=== PATIENT | female | born 2000 | race Caucasian/White ===

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

== ENCOUNTER 2020-07-07 20:17 | Inpatient (IN) ==
[2020-07-07 21:14] LABS: Urine Appearance Cloudy; Urine Bilirubin Negative (Negative); Urine Blood 1+ (Negative); Urine Color Straw; Urine Glucose Negative (Negative); Urine Ketones Negative (Negative); Urine Nitrite Negative (Negative); Urine Protein Negative (Negative); Urine Specific Gravity 1.004 (1.002-1.030); Urine Urobilinogen Negative (Negative)
[2020-07-07 21:22] LABS: ABS Eosinophils 0.2 10^3/ul (0-0.6); ABS Lymphocytes 3.5 10^3/ul (1.0-4.8); ABS Monocytes 0.5 10^3/ul (0-0.8); ABS Neutrophils 3.7 10^3/ul (1.5-7.7); Eosinophil % 1.9 %; Hematocrit 42 % (35-47); Hemoglobin 14.1 g/dL (12.0-16.0); Mean Corpuscular HGB Conc 34 g/dL (31-36); Mean Corpuscular Hemoglobin 28 pg (27-31); Mean Corpuscular Volume 84 fL (80-97); Mean Platelet Volume 7.9 fL (7.4-10.4); Platelet Count 289 10^3/uL (150-450); Red Blood Count 4.99 10^6 /uL (3.70-4.87); Red Cell Distribution Width 14 % (10-15); White Blood Count 7.9 10^3/uL (3.5-10.8)
[2020-07-07 21:24] LABS: Urine Bacteria 2+ (Absent); Urine Red Blood Cell Trace(0-2/hpf) (Absent); Urine Squamous Epithelial Cell Present (Absent); Urine White Blood Cell 1+(6-10/hpf) (Absent)
[2020-07-07 21:38] LABS: Urine Benzodiazepine Screen None Detected (None Detect); Urine Cannabinoids Screen None Detected (None Detect); Urine Opiates Screen None Detected (None Detect)
[2020-07-07 21:46] LABS: ALT 10 U/L (7-52); AST 14 U/L (13-39); Albumin 4.5 g/dL (3.2-5.2); Albumin/Globulin Ratio 1.4 (1-3); Alkaline Phosphatase 65 U/L (34-104); Anion Gap 7 mmol/L (2-11); Blood Urea Nitrogen 11 mg/dL (6-24); CO2 Carbon Dioxide 26 mmol/L (22-32); Calcium 9.8 mg/dL (8.6-10.3); Chloride 105 mmol/L (101-111); EGFR Non-African American 89.3 (>60); Globulin 3.2 g/dL (2-4); Glucose 92 mg/dL (70-100); Potassium 3.6 mmol/L (3.5-5.0); Sodium 138 mmol/L (135-145); Total Protein 7.7 g/dL (6.4-8.9)
[2020-07-07 21:47] LABS: Acetaminophen < 15 mcg/mL; Alcohol, S < 10 mg/dL (<10); Salicylate < 2.50 mg/dL (<30)
[2020-07-07 22:01] LABS: TSH Ultra Thyroid Stim Horm 1.34 mcIU/mL (0.34-5.60)
[2020-07-08] MEDS ORDERED: Al Hydrox/Mg Hydrox/Simet LIQ 30 ML UDC PO PRN (08:51)
[2020-07-11 08:10] VITALS: BP 114/65
== END 2020-07-11 12:10 | disposition home or self-care (01) | DRG 881 ==
LOC: ED 20:17 → BSU 07-08 08:51
PROVIDERS: ADMIT Psychiatry & Neurology Psychiatry; ATTEND Psychiatry & Neurology Psychiatry

== ENCOUNTER 2020-08-22 12:10 | Inpatient (IN) ==
[2020-08-22 13:09] LABS: ABS Eosinophils 0.1 10^3/ul (0-0.6); ABS Lymphocytes 1.6 10^3/ul (1.0-4.8); ABS Monocytes 0.4 10^3/ul (0-0.8); Eosinophil % 1.2 %; Hematocrit 39 % (35-47); Hemoglobin 13.4 g/dL (12.0-16.0); Lymphocyte % 26.3 %; Mean Corpuscular HGB Conc 34 g/dL (31-36); Mean Corpuscular Hemoglobin 29 pg (27-31); Mean Corpuscular Volume 84 fL (80-97); Mean Platelet Volume 7.4 fL (7.4-10.4); Platelet Count 315 10^3/uL (150-450); Red Blood Count 4.69 10^6 /uL (3.70-4.87); Red Cell Distribution Width 14 % (10-15); White Blood Count 6.1 10^3/uL (3.5-10.8)
[2020-08-22 13:36] LABS: Salicylate < 2.50 mg/dL (<30)
[2020-08-22 13:50] LABS: TSH Ultra Thyroid Stim Horm 0.73 mcIU/mL (0.34-5.60)
[2020-08-22 13:57] LABS: ALT 9 U/L (7-52); AST 13 U/L (13-39); Albumin/Globulin Ratio 1.3 (1-3); Alkaline Phosphatase 62 U/L (35-149); Anion Gap 6 mmol/L (2-11); Blood Urea Nitrogen 9 mg/dL (6-24); CO2 Carbon Dioxide 24 mmol/L (22-32); Calcium 9.1 mg/dL (8.6-10.3); Chloride 105 mmol/L (101-111); EGFR African American 114.5 (>60); EGFR Non-African American 94.6 (>60); Glucose 94 mg/dL (70-100); Potassium 3.8 mmol/L (3.5-5.0); Sodium 135 mmol/L (135-145)
[2020-08-22 14:04] LABS: HCG Pregnancy < 0.60 mIU/mL
[2020-08-22 14:09] LABS: Acetaminophen < 15 mcg/mL
[2020-08-22 19:52] LABS: Urine Benzodiazepine Screen None Detected (None Detect); Urine Cannabinoids Screen None Detected (None Detect); Urine Opiates Screen None Detected (None Detect)
[2020-08-22 21:17] LABS: Urine Appearance Clear; Urine Bilirubin Negative (Negative); Urine Blood Negative (Negative); Urine Color Straw; Urine Glucose Negative (Negative); Urine Ketones Negative (Negative); Urine Nitrite Negative (Negative); Urine Protein Negative (Negative); Urine Specific Gravity 1.005 (1.002-1.030); Urine Urobilinogen Negative (Negative)
[2020-08-23] MEDS ORDERED: Al Hydrox/Mg Hydrox/Simet LIQ 30 ML UDC PO PRN (02:27)
[2020-08-23] MEDS: Vitamin THERAPEUTIC TAB PO SCH (09:19)
[2020-08-24 08:06] LABS: HDL Cholesterol 47.3 mg/dL
[2020-08-24] MEDS: Vitamin THERAPEUTIC TAB PO SCH (08:44)
[2020-08-25] MEDS: Vitamin THERAPEUTIC TAB PO SCH (08:58)
[2020-08-26] MEDS: Vitamin THERAPEUTIC TAB PO SCH (09:55)
[2020-08-27] MEDS: Vitamin THERAPEUTIC TAB PO SCH (09:03)
[2020-08-28] MEDS: Vitamin THERAPEUTIC TAB PO SCH (09:08)
[2020-08-29] MEDS: Vitamin THERAPEUTIC TAB PO SCH (09:22)
[2020-08-30] MEDS: Vitamin THERAPEUTIC TAB PO SCH (09:17)
[2020-08-31] MEDS: Vitamin THERAPEUTIC TAB PO SCH (08:48)
[2020-09-01] MEDS: Vitamin THERAPEUTIC TAB PO SCH (08:32)
[2020-09-02] MEDS: Vitamin THERAPEUTIC TAB PO SCH (08:32)
[2020-09-02 11:44] VITALS: BP 118/77
== END 2020-09-02 13:10 | disposition home or self-care (01) | DRG 885 ==
LOC: ED 12:10 → BSU 08-23 00:40
PROVIDERS: ADMIT Psychiatry & Neurology Psychiatry; ATTEND Psychiatry & Neurology Psychiatry